=== PATIENT | female | born 1975 | race Caucasian/White ===

== ENCOUNTER 2018-12-18 12:15 | Emergency (ER) | payer OTHER ==
[~2018-12-18] VITALS: Ht 157.5 cm; Wt 106.6 kg
[~2018-12-18 12:15] MED LIST: NITR100C19 PO
[2018-12-18 12:20] VITALS: BP 142/76
--- NOTE | 2018-12-18 13:05 | NUR ---
C/O LOWER BACK PAIN X 2 DAYS. PAIN RADIATES TO LT LEG. DENIES INJURY OR TRAUMA. TOOK TYLENOL 0800 AM. DENIES PMH
[2018-12-18] MEDS ORDERED: KETOROLAC 60 MG/2 ML VIAL IM ONE (13:25)
[2018-12-18] MEDS ORDERED: LORazepam 1 MG TAB PO ONE (13:25)
[2018-12-18 14:00] VITALS: BP 134/81
== END 2018-12-18 14:00 | disposition home or self-care (01) ==
LOC: MED 12:15
DX: M54.32 Sciatica, left side (principal); Z91.010 Allergy to peanuts; Z79.899 Other long term (current) drug therapy
CPT/HCPCS: 81002; 81025; 96372; 99283; J1885

== ENCOUNTER 2020-04-21 11:12 | Emergency (ER) | payer OTHER ==
[~2020-04-21] VITALS: Ht 162.6 cm; Wt 90.7 kg
[2020-04-21 11:16] VITALS: BP 139/89
[2020-04-21] MEDS ORDERED: KETOROLAC 60 MG/2 ML VIAL IM ONE (11:35)
[2020-04-21] MEDS ORDERED: MORPHINE SULFATE 4 MG/ML SYR IM ONE (12:30)
[2020-04-21 12:43] VITALS: BP 118/68
== END 2020-04-21 12:43 | disposition home or self-care (01) ==
LOC: MED 11:12
DX: S80.12XA Contusion of left lower leg, initial encounter (principal); Z91.010 Allergy to peanuts; Z79.899 Other long term (current) drug therapy; W19.XXXA Unspecified fall, initial encounter; Y93.89 Activity, other specified; Y92.89 Other specified places as the place of occurrence of the external cause; Y99.8 Other external cause status
CPT/HCPCS: 73562; 96372; 99284; J1885; J2270

== ENCOUNTER 2021-12-26 08:32 | Emergency (ER) | payer OTHER ==
[~2021-12-26] VITALS: Ht 157.5 cm; Wt 111.3 kg
[2021-12-26 08:35] VITALS: BP 162/93
--- NOTE | 2021-12-26 08:46 | NUR ---
46/F PRESENTS TO ED WITH C/O "BUMPS" ON BACK OF HER NECK SINCE FRIDAY, PATIENT REPORTS SINCE SHE HAS HAD INTERMITTENT FEVERS AND WOKE UP WITH A 6/10 ACHING RIGHT SIDED HEADACHE. PATIENT REPORTS SHE HAS BEEN TAKING TYLENOL WITH MILD RELIEF, DENIES DIZZINESS, VISION CHANGES, N/V/D. RED, TENDER BUMPS NOTED TO BACK OF NECK AND HEAD, NO DRAINAGE OR BLEEDING NOTED.
[2021-12-26] MEDS ORDERED: KETOROLAC 60 MG/2 ML VIAL IM ONE (09:10)
[2021-12-26] MEDS ORDERED: IBUP-2213 PO (09:15)
[2021-12-26] MEDS ORDERED: CEPH-588 PO (09:15)
[2021-12-26 09:35] VITALS: BP 162/93
[2021-12-26] MEDS ORDERED: PRED20TA5 PO (09:35)
--- NOTE | 2021-12-26 09:36 | NUR ---
Patient discharged with v/s stable. Written and verbal after care instructions ABOUT CELLULITIS given and explained. Patient alert, oriented and verbalized understanding of instructions. Ambulatory with steady gait. All questions addressed prior to discharge. ID band removed. Patient advised to follow up with PMD. Rx of KEFLEX, IBUPROFEN AND PREDNISONE given. Patient educated on indication of medication including possible reaction and side effects. Opportunity to ask questions provided and answered.
== END 2021-12-26 09:36 | disposition home or self-care (01) ==
LOC: MED 08:32
DX: R51.9 Headache, unspecified (principal); L03.811 Cellulitis of head [any part, except face]; L03.312 Cellulitis of back [any part except buttock and flank]; Z79.899 Other long term (current) drug therapy; Z90.49 Acquired absence of other specified parts of digestive tract; Z98.890 Other specified postprocedural states; Z91.018 Allergy to other foods
CPT/HCPCS: 96372; 99283; J1885